=== PATIENT | female | born 1995 | race Caucasian/White ===

== ENCOUNTER → 2018-06-11 09:46 | Outpatient (CLI) | payer OTHER, SELFPAY ==
--- NOTE | 2018-06-11 09:49 | XR_ITS ---
XR foot wt bearing RT 3V HISTORY: Foot pain ITS.REASON: pain ORDERING PHYSICIAN: Augustina Kenyon DPM PATIENT AGE: 23 years COMPARISON: None FINDINGS: There is mild hallux valgus with mild hypertrophic changes at the distal aspect of the first metatarsal. Mild pes planus also noted. No fracture or dislocation or other significant anomaly. IMPRESSION: Mild hallux valgus and pes planus with bunion formation
--- NOTE | 2018-06-11 09:49 | XR_ITS ---
XR foot wt bearing LT 3V HISTORY: Foot pain ITS.REASON: pain ORDERING PHYSICIAN: Augustina Kenyon DPM PATIENT AGE: 23 years COMPARISON: A FINDINGS: There is mild hallux valgus with some hypertrophic changes distal aspect of the first metatarsal. Mild pass planus also noted. No fracture or dislocation. No lytic or blastic change. IMPRESSION: Mild hallux valgus and pes planus with bunion formation
== END ==
PROVIDERS: PCP Emergency Medicine; Visit Provider Podiatrist
DX: M21.611 Bunion of right foot (principal); M21.612 Bunion of left foot
CPT/HCPCS: 73630

== ENCOUNTER → 2019-04-28 12:20 | Outpatient (CLI) | payer OTHER, SELFPAY ==
[2019-04-28 12:46] LABS: Basophils # 0.1 K/mm3 (0-0.2); Basophils % 0.7 % (0.1-2.0); Eosinophils # 0.3 K/mm3 (0.0-0.4); Eosinophils % 3.2 % (0.1-12.0); Hematocrit 42.9 % (37.0-47.0); Hemoglobin 13.9 g/dL (12.2-16.2); Lymphocytes # 2.4 K/mm3 (0.7-4.5); Lymphocytes % 29.9 % (10-50); Mean Corpuscular HGB Conc 32.3 g/dL (31.8-35.4); Mean Corpuscular Hemoglobin 29.1 pg (27.0-31.2); Mean Corpuscular Volume 90.1 fl (81-99); Mean Platelet Volume 7.5 fl (7.4-10.4); Monocytes # 0.4 K/mm3 (0.1-1.0); Monocytes % 5.1 % (1.7-9.3); Platelet Count 358 K/mm3 (142-424); Red Blood Count 4.76 M/mm3 (4.20-5.40); Red Cell Distribution Width 12.6 % (11.5-17.5); White Blood Count 8.2 K/mm3 (4.8-10.8)
--- NOTE | 2019-04-28 12:46 | ECG_ITS ---
APPROVED REPORT Exam: Resting ECG HR:77 bpm ECG Measurements Heart Rate 77 AXES NE 138 P 58 QRSd 84 QRS 51 QT 360 T 20 QTc 407 <Conclusion> Normal sinus rhythm with sinus arrhythmia Incomplete RBBB Normal ECG Electronically signed by : Se Knox, 04/28/2019 18:26:24
[2019-04-28 12:54] LABS: Urine Pregnancy, HCG Qual. Negative (Negative)
--- NOTE | 2019-04-28 12:55 | XR_ITS ---
PROCEDURE: XR CHEST 2V CLINICAL HISTORY: TOBACCO USE Smoker, cough, COMPARISON: No exams were available for comparison FINDINGS: The cardiomediastinal silhouette and pulmonary vascularity are within normal limits. The lungs are clear without infiltrates, suspicious nodules, or pleural effusions. No acute bony abnormalities. IMPRESSION: No acute findings. Dictated by: Taco Keen MD 04/28/2019 14:57 Electronically signed by Taco Keen MD in [facility] 04/28/2019 14:57
[2019-04-28 13:45] LABS: Anion Gap 16.3 mEq/L (5-15); Blood Urea Nitrogen 10 mg/dL (7-18); Calcium 9.5 mg/dL (8.5-10.1); Carbon Dioxide 25 mmol/L (21.0-32.0); Chloride 106 mmol/L (98-107); Creatinine,Serum 0.75 mg/dL (0.55-1.02); Estimated Glomerular Filt Rate 96 ml/min (>60); GFR (African American) 116 ML/MIN (>60); Glucose 134 mg/dL (74-106); Potassium 4.3 mmoL/L (3.5-5.1); Sodium 143 mmol/L (136-145)
[2019-04-30 08:20] LABS: Vitamin D 25 Hydroxy 33.5 ng/mL (30.0-100.0)
== END ==
PROVIDERS: PCP Emergency Medicine; Visit Provider Podiatrist
DX: Z01.818 Encounter for other preprocedural examination (principal); M76.821 Posterior tibial tendinitis, right leg; M76.822 Posterior tibial tendinitis, left leg; Q66.89 Other specified congenital deformities of feet; M20.11 Hallux valgus (acquired), right foot; M20.12 Hallux valgus (acquired), left foot
CPT/HCPCS: 36415; 71046; 80048; 81025; 82652; 85025; 93005

== ENCOUNTER → 2019-07-27 22:43 | Outpatient (CLI) | payer OTHER, SELFPAY ==
[2019-07-27 23:00] VITALS: BMI 17.7
[2019-07-27 23:16] VITALS: BP 123/74; PULSE 85; RESP 19; TEMP 36.6; O2SAT 100
== END ==
PROVIDERS: PCP Emergency Medicine; Visit Provider Emergency Medicine
DX: S81.851A Open bite, right lower leg, initial encounter (principal); W54.0XXA Bitten by dog, initial encounter
CPT/HCPCS: G0463

== ENCOUNTER → 2020-06-14 12:15 | Outpatient (CLI) | payer OTHER, SELFPAY ==
[2020-06-14 13:07] LABS: Basophils % 0.5 % (0.1-2.0); Eosinophils # 0.4 K/mm3 (0.0-0.4); Eosinophils % 4.5 % (0.1-12.0); Hematocrit 42.7 % (37.0-47.0); Hemoglobin 14.1 g/dL (12.2-16.2); Lymphocytes # 1.7 K/mm3 (0.7-4.5); Lymphocytes % 20.5 % (10-50); Mean Corpuscular HGB Conc 33.1 g/dL (31.8-35.4); Mean Corpuscular Hemoglobin 29.8 pg (27.0-31.2); Mean Corpuscular Volume 89.8 fl (81-99); Mean Platelet Volume 7.5 fl (7.4-10.4); Monocytes # 0.6 K/mm3 (0.1-1.0); Monocytes % 6.6 % (1.7-9.3); Neutrophils # 5.8 K/mm3 (1.8-7.8); Platelet Count 386 K/mm3 (142-424); Red Blood Count 4.75 M/mm3 (4.20-5.40); Red Cell Distribution Width 12.7 % (11.5-17.5); White Blood Count 8.5 K/mm3 (4.8-10.8)
[2020-06-16 05:18] LABS: HIV Screen 4th Generation wRfx Non Reactive (Non Reactive)
[2020-06-16 08:48] LABS: Hepatitis B Surface Antigen Negative (Negative); Hepatitis C Antibody <0.1 s/co ratio (0.0-0.9)
[2020-06-16 11:53] LABS: Rubella Antibodies, IgG 1.74 index (Immune >0.99)
[2020-06-16 15:47] LABS: Rapid Plasma Reagin Ab Titer Non Reactive (NonRea<1:1)
== END ==
PROVIDERS: Visit Provider Nurse Practitioner Obstetrics & Gynecology
DX: Z34.90 Encounter for supervision of normal pregnancy, unspecified, unspecified trimester (principal)
CPT/HCPCS: 36415; 84702; 85025; 86592; 86703; 86762; 86850; 87340; 87380; G0432

== ENCOUNTER → 2020-06-17 15:22 | Outpatient (CLI) | payer OTHER, SELFPAY ==
[2020-06-17 15:24] LABS: Microscopic, Urine URINE MICROSCOPIC (MICROSCOPIC)
[2020-06-17 16:19] LABS: Appearance,Urine CLEAR (Clear); Bilirubin,Urine Negative (Negative); Blood, Urine Negative (Negative); Color,Urine YELLOW (Yellow); Glucose,Urine (UA) Negative (Negative); Ketones,Urine Negative (Negative); Leukocyte Esterase,Urine Negative (Negative); Nitrate,Urine Negative (Negative); PH,Urine 6.5 (5.0-8.5); Protein,Urine Negative (Negative); Specific Gravity, Urine 1.025 (1.005-1.030); Urobilinogen,Urine 0.2 EU/dl (0.2)
== END ==
PROVIDERS: Visit Provider Nurse Practitioner Obstetrics & Gynecology
DX: Z34.90 Encounter for supervision of normal pregnancy, unspecified, unspecified trimester (principal)
CPT/HCPCS: 81001

== ENCOUNTER → 2020-06-21 13:21 | Outpatient (CLI) | payer OTHER, SELFPAY ==
--- NOTE | 2020-06-21 13:21 | US_ITS ---
PROCEDURE: US OB >= 14 WEEKS FETUS CLINICAL INDICATION: US OB for DATES COMPARISON: No exams were available for comparison FINDINGS: An intrauterine gestational sac is present with a pole with a crown-rump length of 3.23cm correlating to gestational age of 10weeks 1day. heart tones are present with an FHR of 178bpm. Yolk sac is noted. IMPRESSION: Live IUP at 10 weeks 1 day Estimated due date by Ultrasound is 01/16/2021 Dictated by: Taco Keen MD 06/21/2020 16:07 Taco Keen MD in [facility] 06/21/2020 16:07
== END ==
PROVIDERS: PCP Physician Assistant; Visit Provider Nurse Practitioner Obstetrics & Gynecology
DX: O26.841 Uterine size-date discrepancy, first trimester (principal)
CPT/HCPCS: 76805

== ENCOUNTER → 2020-07-15 10:57 | Outpatient (CLI) | payer OTHER, SELFPAY | PROVIDERS: Visit Provider Nurse Practitioner Obstetrics & Gynecology | DX: Z36.0 Encounter for antenatal screening for chromosomal anomalies (principal) | CPT/HCPCS: 36415; 82106 ==

== ENCOUNTER → 2020-08-30 09:26 | Outpatient (CLI) | payer OTHER, SELFPAY ==
--- NOTE | 2020-08-30 10:06 | US_ITS ---
PROCEDURE: US OB >= 14 WEEKS FETUS CLINICAL INDICATION: ANATOMY SCAN Complete OB ultrasound COMPARISON: US US OB >= 14 WEEKS FETUS from 06/21/2020 FINDINGS: Single viable intrauterine gestation. Breech position. Placenta: Posteriorplacenta grade 1. There is average amount fluid. The cervix appears satisfactory. Closed and measuring 5 cm in in length transabdominal Complete survey performed and was unremarkable on the submitted images as in PACS. No discrete anomalies identified on survey imaging by technologist. Active fetus. Three-vessel cord with satisfactory umbilical cord insertion. 4- chamber heart noted. Questionable echogenic cardiac focus of uncertain clinical significance. Survey of brain & ventricles Unremarkable. Face and neck survey unremarkable. Diaphragm and chest views unremarkable. Abdomen: Both kidneys noted and unremarkable. Stomach noted and satisfactory. Spine: Survey of the spine satisfactory with no anomalies identified nor imaged. Both arms and legs noted. Amniotic Fluid: Adequate. Maternal adnexa: No significant findings. Measurements: Average ultrasound age 20weeks. Gestational Age 20weeks 1day Estimated due date by ultrasound age 0701/17/2021. Estimated weight 324g BPD = 20weeks 1day OFD = 20weeks 1day HC = 19weeks 2days AC = 20weeks 1day FL = 20weeks Growth Percentile= 35Percent% Heart Rate = 155bpm Cerebellum = 21weeks 1day Humerus = 20weeks 3days HC/AC is 1.12 CI is 0.8 FL/BPD is 0.69 FL/AC is 0.22. IMPRESSION: There is a single live fetus in breech presentation with an average ultrasound age of 20 weeks. All parameters correlate. No definite anomalies. There is a questionable cardiac echogenic focus. This is of questionable clinical significance. Please see above for detail Dictated by: Taco Keen MD 08/31/2020 09:46 Taco Keen MD in [facility] 08/31/2020 09:46
== END ==
PROVIDERS: PCP Physician Assistant; Visit Provider Nurse Practitioner Obstetrics & Gynecology
DX: O26.841 Uterine size-date discrepancy, first trimester (principal)
CPT/HCPCS: 76805

== ENCOUNTER → 2020-10-30 08:49 | Outpatient (CLI) | payer OTHER, SELFPAY ==
[2020-10-30 09:22] LABS: Glucose,Fasting 85 mg/dl (74-100)
[2020-10-30 11:12] LABS: Glucose 1 Hour 120 mg/dL (74-100)
== END ==
PROVIDERS: Visit Provider Nurse Practitioner Obstetrics & Gynecology
DX: Z34.90 Encounter for supervision of normal pregnancy, unspecified, unspecified trimester (principal)
CPT/HCPCS: 36415; 82951

== ENCOUNTER 2020-11-05 18:53 | Outpatient (CLI) | payer OTHER, SELFPAY ==
[2020-11-05 19:01] VITALS: BMI 24.5
[2020-11-05 19:12] LABS: Microscopic, Urine URINE MICROSCOPIC (MICROSCOPIC)
[2020-11-05 19:15] LABS: Appearance,Urine SL CLOUDY (Clear); Bilirubin,Urine Negative (Negative); Blood, Urine Negative (Negative); Color,Urine YELLOW (Yellow); Glucose,Urine (UA) Negative (Negative); Ketones,Urine 1+ (Negative); Leukocyte Esterase,Urine Negative (Negative); Nitrate,Urine Negative (Negative); PH,Urine 5.5 (5.0-8.5); Protein,Urine Negative (Negative); Specific Gravity, Urine <= 1.005 (1.005-1.030); Urobilinogen,Urine 0.2 EU/dl (0.2)
[2020-11-05 19:20] LABS: Bacteria,Urine 2+ /lpf; RBC,Urine Occasional #/hpf (0-3)
[2020-11-05 19:27] LABS: Amphetamine/Metha Screen,Urine Negative ng/ml (<1000)
[2020-11-05 19:28] LABS: Barbiturates Screen,Urine Negative ng/ml (<200)
[2020-11-05 19:29] LABS: Benzodiazepines Screen,Urine Negative ng/ml (<200); Cannabinoid Screen,Urine Negative ng/ml (<50)
[2020-11-05 19:30] LABS: Cocaine Screen,Urine Negative ng/ml (<300)
[2020-11-05 19:31] LABS: Methadone Screen,Urine Negative ng/ml (<300); Opiate Screen,Urine Negative ng/ml (<300)
[2020-11-05 19:32] LABS: Phencyclidine Screen,Urine Negative ng/ml (<25)
[2020-11-05 19:49] VITALS: BP 116/73; PULSE 71; RESP 18; TEMP 37.2; O2SAT 97; BMI 24.5
== END 2020-11-05 20:38 | disposition home or self-care (01) ==
LOC: OBOUT 18:55 → OB 18:56
PROVIDERS: Obstetrics & Gynecology; PCP Nurse Practitioner Obstetrics & Gynecology; Visit Provider Nurse Practitioner Obstetrics & Gynecology
DX: O26.893 Other specified pregnancy related conditions, third trimester (principal); Z3A.29 29 weeks gestation of pregnancy; R10.13 Epigastric pain
CPT/HCPCS: 59025; 80305; 81001; 87086; 87088; 87186; G0463

== ENCOUNTER → 2020-12-17 08:37 | Outpatient (CLI) | payer OTHER, SELFPAY ==
--- NOTE | 2020-12-17 08:37 | US_ITS ---
PROCEDURE: US OB FOLLOW UP CLINICAL INDICATION: sga Small for gestational age FINDINGS: The following parameters are obtained: Average ultrasound age is Average 35weeks 4days Estimated due date by ultrasound is 01/17/2021. Estimated weight is 2,673g. This is 41 percentile BPD: 36weeks 2days OFD: 36 weeks 2 days HC: 35weeks 5days AC: 35weeks 6days FL: 34weeks 2days heart rate: 140bpm bpm. HC/AC: 0.99 Cephalic index: 0.8 FL/BPD: 0.74 FL/AC: 0.21 Amniotic fluid index: 8.11cm The femur length is 34weeks 2days No obvious anomalies evident. Placenta: Posterior and fundal grade 2 Cervix: Closed and 3-4 cm in length Biophysical profile 8 of 8 IMPRESSION: There is a single live fetus present in cephalic presentation. Average ultrasound age 35 weeks 4 days with an estimated weight 2673 g which is 41 percentile. PAVEL is 8 cm Biophysical profile of 8 Dictated by: Taco Keen MD 12/17/2020 11:24 Taco Keen MD in [facility] 12/17/2020 11:24
== END ==
PROVIDERS: PCP Emergency Medicine; Visit Provider Nurse Practitioner Obstetrics & Gynecology
DX: O36.5990 Maternal care for other known or suspected poor fetal growth, unspecified trimester, not applicable or unspecified (principal)
CPT/HCPCS: 76816; 76819

== ENCOUNTER → 2020-12-24 14:03 | Outpatient (CLI) | payer OTHER, SELFPAY | PROVIDERS: Visit Provider Nurse Practitioner Obstetrics & Gynecology | DX: Z34.90 Encounter for supervision of normal pregnancy, unspecified, unspecified trimester (principal) | CPT/HCPCS: 86403 ==

== ENCOUNTER → 2021-01-11 09:52 | Outpatient (CLI) | payer OTHER, SELFPAY | PROVIDERS: Visit Provider Nurse Practitioner Obstetrics & Gynecology | DX: Z01.812 Encounter for preprocedural laboratory examination (principal); Z11.52 Encounter for screening for COVID-19; Z34.90 Encounter for supervision of normal pregnancy, unspecified, unspecified trimester | CPT/HCPCS: U0003 ==

== ENCOUNTER 2021-01-12 04:59 | Inpatient (IN) | payer OTHER, SELFPAY ==
[2021-01-12 05:02] VITALS: BMI 26.8
[2021-01-12 05:39] LABS: Microscopic, Urine URINE MICROSCOPIC (MICROSCOPIC)
[2021-01-12 05:40] VITALS: BP 129/77; PULSE 68; RESP 18; TEMP 37.1; O2SAT 97; BMI 26.8
[2021-01-12 05:45] LABS: Basophils % 0.3 % (0.1-2.0); Eosinophils # 0.3 K/mm3 (0.0-0.4); Eosinophils % 3.9 % (0.1-12.0); Hematocrit 34.8 % (37.0-47.0); Hemoglobin 11.7 g/dL (12.2-16.2); Lymphocytes # 2.2 K/mm3 (0.7-4.5); Mean Corpuscular HGB Conc 33.5 g/dL (31.8-35.4); Mean Corpuscular Hemoglobin 29.5 pg (27.0-31.2); Mean Corpuscular Volume 87.9 fl (81-99); Mean Platelet Volume 8.1 fl (7.4-10.4); Monocytes # 0.6 K/mm3 (0.1-1.0); Monocytes % 8.7 % (1.7-9.3); Neutrophils # 3.8 K/mm3 (1.8-7.8); Neutrophils % 55.1 % (37.0-80.0); Platelet Count 258 K/mm3 (142-424); Red Blood Count 3.97 M/mm3 (4.20-5.40); White Blood Count 6.9 K/mm3 (4.8-10.8)
[2021-01-12 06:14] LABS: Appearance,Urine CLEAR (Clear); Bilirubin,Urine Negative (Negative); Blood, Urine Negative (Negative); Color,Urine YELLOW (Yellow); Glucose,Urine (UA) Negative (Negative); Ketones,Urine Negative (Negative); Leukocyte Esterase,Urine Negative (Negative); Nitrate,Urine Negative (Negative); Protein,Urine Negative (Negative); Specific Gravity, Urine 1.025 (1.005-1.030)
[2021-01-12 07:02] LABS: Bacteria,Urine Trace /lpf; RBC,Urine Occasional #/hpf (0-3); WBC,Urine Occasional #/hpf (0-3)
--- NOTE | 2021-01-12 07:38 | HMH.PHAINT ---
MEDICATION RECONCILIATION COMPLETED ON PATIENT USING EXTERNAL FILL HISTORY FROM PHARMACY. -RUCHI VELOZ, RAMUD
[2021-01-12 09:21] LABS: Amphetamine/Metha Screen,Urine Negative ng/ml (<1000)
[2021-01-12 09:22] LABS: Barbiturates Screen,Urine Negative ng/ml (<200)
[2021-01-12 09:23] LABS: Benzodiazepines Screen,Urine Negative ng/ml (<200); Cannabinoid Screen,Urine Negative ng/ml (<50)
[2021-01-12 09:24] LABS: Cocaine Screen,Urine Negative ng/ml (<300)
[2021-01-12 09:25] LABS: Methadone Screen,Urine Negative ng/ml (<300); Opiate Screen,Urine Negative ng/ml (<300)
[2021-01-12 09:26] LABS: Phencyclidine Screen,Urine Negative ng/ml (<25)
--- NOTE | 2021-01-12 09:28 | HMH.LABNOT ---
Labor Note - Subjective: Date: 01/12/21 Time: 09:28 regular contraction - Objective: NST:: Reactive Contractions:: every 2-3 minutes Cervical Dilation:: 3 Effacement:: 75% Station: -2 Membranes: artificially ruptured Comment:: I ruptured her membranes and there was clear fluid. - Fetus: Monitoring?: Yes monitoring type:: External - Assessment: Labor progressing?: Yes Patient Problems: All Active Problems (Acute) Asthma (Chronic) Women's annual routine gynecological examination (Acute) - Plan: Anesthesia for epidural?: Yes Continue to labor down?: Yes Plan for ?: No Continue to monitor?: Yes Start pushing?: No Comment:: She is doing very well. I have ruptured her membranes and there was clear fluid. She is malgorzata every 2 minutes. Nonstress test is reactive. We will expect a vaginal delivery.
--- NOTE | 2021-01-12 09:32 | HMH.OBAPHP ---
OB - H&P: HPI Antepartum - History of Present Illness Chief complaint: Term History of present illness: She is a 25-year-old 1 para 0 at 39+ weeks gestational age. She is feeling pressure and discomfort and as result that we have elected to induce her labor at term. Her due date is January 16. - History of Present Criteria for establishing EDC:: LMP confirmed by 1st trimester US care: good care Ultrasounds: normal 1st trimester US, normal mid trimester US Obstetrical complications: none Medical complications: none - Labs Blood type: O (+) positive Rubella: immune RPR/VDRL: nonreactive GBS status: negative HBsAG: negative HMH History I have reviewed the patient's past medical history: Yes Medical History: Reports:: Anxiety, Asthma, Depression Denies:: Diabetes Mellitus Type 1 *Have you ever received a pneumonia vaccine?: No *Have you received a flu vaccine this season?: Yes Other Surgeries: Yes: No Previous Surgery, Other. No: Amputation: No Fractures: No - *Social History Smoking Status: Current some day smoker Tobacco Type: cigarettes # Packs/Day (cigarettes): 1 Alcohol Intake: never Alcohol Intake Frequency:: holidays/special occasions only Substance Use Type: denies use *Occupational Status:: employed Housing: house Household Members: significant other *Travel in the last 8 weeks: None - Psychiatric History Pschychiatric History:: Reports:: Anxiety, Depression Family Hx:: Cancer, Diabetes Para: 0 Review of Systems - Review of Systems Review of systems:: pertinent systems reviewed and negative unless documented below Meds Home Medications Medication Instructions Recorded Confirmed Type vitamin with calcium 1 tab PO DAILY tab 08/11/20 01/12/21 History no.72-iron 27 mg-folic acid 1 mg tablet Albuterol Sulfate [Albuterol 2 puffs IH Q4HP PRN 01/12/21 01/12/21 History Sulfate Hfa] Ferrous Sulfate 325 mg PO DAILY 01/12/21 01/12/21 History Fluticasone Propionate [Flovent 2 puff IH BID 01/12/21 01/12/21 History HFA] Allergies Allergy/AdvReac Type Severity Reaction Status Date / Time No Known Allergies Allergy Verified 01/07/21 09:51 OB - H&P: Exam - Physical Exam Vital signs: Temp Pulse Resp BP Pulse Ox 98.7 F 68 18 129/77 97 01/12/21 05:40 01/12/21 05:40 01/12/21 05:40 01/12/21 05:40 01/12/21 05:40 - Constitutional no acute distress - Routine HEENT Exam Head: Present: normocephalic Eye: Present: EOMI, PERRL ENT: Present: mucous membranes moist - Routine Neck Exam Present: supple, full ROM - Routine Respiratory Exam Absent: accessory muscle use (good air entry bilaterally), respiratory distress, wheezes, crackles - Routine Cardiovascular Exam Present: RRR. Absent: murmur - Routine Abdominal Exam Present: soft, normoactive bowel sounds. Absent: tenderness, distended, guarding - Routine Rectal Exam Patient deferred: visual exam, digital exam - Routine Exam Patient deferred: external exam, groin exam, perineal exam - Routine Extremities Exam Present: full ROM. Absent: cyanosis, edema - Routine Skin Exam Present: intact. Absent: cyanosis - Routine Neurological Exam Present: alert, oriented X3 - Routine Psychiatric Exam Present: normal affect OB - Results - Labs Labs: Short CBC 01/12/21 Range/Units 05:02 WBC 6.9 (4.8-10.8) K/mm3 Hgb 11.7 L (12.2-16.2) g/dL Hct 34.8 L (37.0-47.0) % Plt Count 258 (142-424) K/mm3 Urine 01/12/21 Range/Units 05:02 Urine Color Yellow (Yellow) Urine Appearance Clear (Clear) Urine pH 6.0 (5.0-8.5) Ur Specific [place] 1.025 (1.005-1.030) Urine Protein Negative (Negative) Urine Glucose (UA) Negative (Negative) OB - A/P Antepartum (1) Normal delivery Status: Acute - Additional Plan Planning to breastfeed?: Yes Plan: induction Additional Information::
--- NOTE | 2021-01-12 10:42 | P.PN_ITS ---
[facility] Anesthesia Checklist - Structural Data Admitted From: Inpatient Planned Operative Procedure/s: labor epidural Consent for Planned Operative Procedure(s) Verified: Yes - Airway Assessment C-Spine Mobility Assessed: Yes TMJ Mobility Assessed: Yes Dentition: Good Dentition - Neurological Assessment Level of Consciousness: Awake, Alert, Appropriate - Anesthesia Plan Anesthesia Risk discussed: Yes Anesthesia Plan: Verified ASA Class: II Anesthesia Type: Epidural [facility] History I have reviewed the patient's past medical history: Yes Medical History: Reports:: Anxiety, Asthma, Depression Denies:: Diabetes Mellitus Type 1 *Have you ever received a pneumonia vaccine?: No *Have you received a flu vaccine this season?: Yes Anesthesia experience/problems:: none Other Surgeries: Yes: No Previous Surgery, Other. No: Amputation: No Fractures: No - *Social History Smoking Status: Current some day smoker Tobacco Type: cigarettes # Packs/Day (cigarettes): 1 Alcohol Intake: never Alcohol Intake Frequency:: holidays/special occasions only Substance Use Type: denies use *Occupational Status:: employed Housing: house Household Members: significant other *Travel in the last 8 weeks: None - Psychiatric History Pschychiatric History:: Reports:: Anxiety, Depression Family Hx:: Cancer, Diabetes Para: 0
--- NOTE | 2021-01-12 11:44 | HMH.LABNOT ---
Labor Note - Subjective: Date: 01/12/21 Time: 11:44 regular contraction - Objective: NST:: Reactive Contractions:: every 2-3 minutes Cervical Dilation:: 4 Effacement:: 90% Station: 0 - Fetus: Monitoring?: Yes monitoring type:: External - Assessment: Labor progressing?: Yes Cephalopelvic disproportion?: No Patient Problems: All Active Problems Normal delivery (Acute) (Acute) Asthma (Chronic) Women's annual routine gynecological examination (Acute) - Plan: Anesthesia for epidural?: Yes Continue to labor down?: Yes Plan for ?: No Continue to monitor?: Yes Start pushing?: No
--- NOTE | 2021-01-12 14:21 | HMH.LABNOT ---
Labor Note - Subjective: Date: 01/12/21 Time: 13:45 regular contraction - Objective: NST:: Reactive Contractions:: every 2-3 minutes Cervical Dilation:: 6 Effacement:: 100% Station: 0 Membranes: artificially ruptured - Fetus: Monitoring?: Yes monitoring type:: External - Assessment: Labor progressing?: Yes Cephalopelvic disproportion?: No Patient Problems: All Active Problems Normal delivery (Acute) (Acute) Asthma (Chronic) Women's annual routine gynecological examination (Acute) - Plan: Anesthesia for epidural?: Yes Continue to labor down?: Yes Plan for ?: No Continue to monitor?: Yes Start pushing?: No
--- NOTE | 2021-01-12 16:48 | HMH.DN ---
- Delivery Note Delivery Date:: 01/12/21 Delivery Time:: 16:31 Anesthesia Type: Epidural Was labor medically induced?: Yes Induction method: per pitocin protocol Gestational age (weeks): 39 Infant delivered prior to 39 weeks?: No Infant Gender: Female at 1 minute: 8 at 5 minutes: 9 LAC or MLE?: LAC Delivery Procedure:: She is a 25-year-old 1 now para 0 at 39+ weeks gestational age. She was feeling pressure and discomfort. As result that we elected to induce her labor at term. She was started on IV oxytocin had her membranes ruptured. Under labor epidural she progressed to full dilation and delivered spontaneously a liveborn female child at 4:31 PM in the afternoon of January 12, 2021. On deliver the head the anterior shoulder then easily delivered followed by the rest the 's body atraumatically. The baby was vigorous and the oropharynx and nasopharynx were bulb suction. We allowed the cord to continue to pulsate for approximately 1 minute. The cord was then doubly clamped and cut and the was placed on the mother's abdomen for further care. The nurses assigned Apgars of 8 at 1 minute and 9 at 5 minutes. She received IV oxytocin and using gentle traction on the cord and countertraction on the fundus I was able to easily deliver the placenta intact at 4:35 PM. It had a normal three-vessel cord. She had a small first-degree laceration that was repaired with interrupted 3-0 Vicryl Rapide suture. She had bilateral labial tears that were reapproximated with interrupted 3-0 Vicryl Rapide suture. She has O+ blood, she is rubella immune and was group B streptococcus negative. She plans to breast-feed. Her metal bench patternmaker is Dr. Doan. Estimated blood loss was approximately 200 cc. Laceration:: vaginal, labial Placental Delivery Description: Spontaneous
[2021-01-12 16:53] LABS: Cord Blood PH 7.38 (7.35-7.45)
--- NOTE | 2021-01-12 23:05 | PC.NURSE ---
OR team paged
--- NOTE | 2021-01-12 23:07 | HMH.ACPN2 ---
Internal Medicine - PN: Subj *Date: 01/12/21 *Time: 23:07 Interval history: She has had more than usual bleeding this evening and I examined her and was able to retrieve clots from the uterus. There was also a couple small pieces of placenta. I suspect she has retained placenta and we will need to take her back to the operating room for a D&C. Exam Vital signs and Labs for Last 24 Hours: Temp Pulse Resp BP Pulse Ox 98.7 F 68 18 129/77 97 01/12/21 05:40 01/12/21 05:40 01/12/21 05:40 01/12/21 05:40 01/12/21 05:40 Laboratory Results - last 24 hr 01/12/21 05:02: WBC 6.9, RBC 3.97 L, Hgb 11.7 L, Hct 34.8 L, MCV 87.9, MCH 29.5, MCHC 33.5, RDW 14.0, Plt Count 258, MPV 8.1, Neut % (Auto) 55.1, Lymph % (Auto) 32.0, [place] % (Auto) 8.7, Eos % (Auto) 3.9, Baso % (Auto) 0.3, Neut # (Auto) 3.8, Lymph # (Auto) 2.2, [place] # (Auto) 0.6, Eos # (Auto) 0.3, Baso # (Auto) 0.0 01/12/21 05:02: Urine Color Yellow, Urine Appearance Clear, Urine pH 6.0, Ur Specific [place] 1.025, Urine Protein Negative, Urine Glucose (UA) Negative, Urine Ketones Negative, Urine Blood Negative, Urine Nitrate Negative, Urine Bilirubin Negative, Urine Urobilinogen 1.0, Ur Leukocyte Esterase Negative, Urine RBC Occasional, Urine WBC Occasional, Ur Squamous Epith Cells 10-20, Urine Bacteria Trace 01/12/21 05:02: Urine Opiates Screen Negative, Urine Methadone Screen Negative, Ur Barbituates Screen Negative, Ur Phencyclidine Scrn Negative, Ur Amphetamines Screen Negative, U Benzodiazepines Scrn Negative, Urine Cocaine Screen Negative, U Marijuana (THC) Screen Negative 01/12/21 05:02: Blood Type O Positive, Antibody Screen Negative, Crossmatch (AHG) See Detail 01/12/21 16:40: Cord ABG pH 7.38 I & O for Last 24 hours: Intake & Output 01/10/21 01/11/21 01/12/21 01/13/21 11:59 11:59 11:59 11:59 Weight 166 lb - Constitutional no acute distress Assessment and Plan (1) Normal delivery Status: Acute Category: Medical Code(s): O80 - Encounter for full-term uncomplicated delivery (2) Retained products of conception after delivery with complications Status: Acute Category: Medical Code(s): O73.1 - Retained portions of placenta and membranes, without hemorrhage - Assessment and plan all Dx Assessment and Plan for all problems:: We will go ahead with a D&C this evening for retained products. We will do this in the operating room. We discussed the risk of surgery that includes bleeding infection.
--- NOTE | 2021-01-12 23:10 | PC.NURSE ---
spoke with Renee Simon
[2021-01-13] VITALS (9 sets, daily range): BP systolic 111–145; BP diastolic 51–75; PULSE 56–71; RESP 12–20; TEMP 36.6–36.9; O2SAT 94–100
--- NOTE | 2021-01-13 00:22 | HMH.OPNOTE ---
Date of procedure: 01/13/21 Pre-op Diagnosis:: hemorrhage, retained products Post-op Diagnosis:: hemorrhage Procedure performed:: D&C Surgeon:: Rashaun Cárdenas MD STRETCHING MACHINE OPERATOR:: Prateek Vaughn Anesthesia: LMA Estimated blood loss (mL): 700 Clinical Note:: She is a 25-year-old 1 now para 1 who is about 6 hours post delivery. She was having increased vaginal bleeding and I examined her in labor and delivery and she had passed considerable amount of large clots. I think that the uterus was full of clots and she was not malgorzata down however when I did examine her I thought I could feel some retained placenta and I did retrieve a couple of small pieces of placenta. As result of this I elected to take her for a D&C. I had performed an ultrasound and did not see a lot of retained products I thought there might be some close to the cervix. Operative findings:: She had a bulky uterus. The endometrial contents were completely empty. I retrieved a small 2 cm piece of tissue that appeared to be placental-like. Otherwise there was no evidence of any retained products. Operative note:: She was taken the operating room where LMA anesthesia was found be adequate. She is prepped draped normal sterile fashion lithotomy position. Weighted speculum placed in vagina and the anterior lip of the cervix was grasped with a sponge forcep. I then examined the endometrial cavity with my fingers. I then performed a gentle curettage with a large curette. I retrieved a couple of small pieces of tissue that looked placenta like although it was not entirely clear that this is what it was. There were no large pieces of placenta. I then performed a gentle curettage with a 11 mm curved Todd suction curette and once again did not retrieve any significant amount of tissue. I then elected to place a Bakri balloon within the uterine cavity and I inserted a backup balloon with approximately 120 cc of saline. I then attached this to a David bag. There was minimal drainage from the David bag. Her perineal laceration had come open slightly so I elected to place interrupted 3-0 Vicryl Rapide sutures here. She tolerated procedure well and was taken to the recovery room in excellent condition. All sponge and instrument counts were correct. Recommended blood loss was approximately 700 cc. I correct volume will be done post surgery after measuring the sponges and canisters. Condition: stable Disposition: PACU Specimens:: None Complications:: None
--- NOTE | 2021-01-13 00:36 | HMH.ANESI ---
[facility] Anesthesia Record Part I Intake, IV Amount: 1,000 Estimated blood loss (mL): 800 Urine output (mL): 0 Blood Pressure: 111/57 SaO2: 96 Pulse Rate: 62 Respiratory Rate: 12 Temperature: 97.8 F Patient is:: Awake, Stable Stable to PACU at:: 00:30
--- NOTE | 2021-01-13 01:26 | SUR.OPER ---
Patient had 800ml blood loss in OR. Dr. Cárdenas is aware. Patient has H&H scheduled for 6am and Dr. Cárdenas is okay with waiting to draw H&H at this time. Vital signs are stable. RN reported OR blood loss to Shruthi Singh OB RN as well.
[2021-01-13 06:56] LABS: Hematocrit 30.6 % (37.0-47.0); Hemoglobin 10.4 g/dL (12.2-16.2)
--- NOTE | 2021-01-13 08:25 | HMH.ACPN2 ---
Internal Medicine - PN: Subj *Date: 01/13/21 *Time: 08:25 Interval history: She is doing very well this morning. She is 1 day post vaginal delivery. We had to take her back at midnight for a D&C. We did not retrieve much tissue. Her hemoglobin this morning is 10.4. Her lochia is normal. She is eating and drinking and ambulating. The Bakri balloon fell out on its own. She is bottlefeeding. Exam Vital signs and Labs for Last 24 Hours: Temp Pulse Resp BP Pulse Ox 98.4 F 60 16 137/73 97 01/13/21 01:24 01/13/21 01:24 01/13/21 01:24 01/13/21 01:24 01/13/21 01:24 Laboratory Results - last 24 hr 01/12/21 05:02: Urine Opiates Screen Negative, Urine Methadone Screen Negative, Ur Barbituates Screen Negative, Ur Phencyclidine Scrn Negative, Ur Amphetamines Screen Negative, U Benzodiazepines Scrn Negative, Urine Cocaine Screen Negative, U Marijuana (THC) Screen Negative 01/12/21 05:02: Blood Type O Positive, Antibody Screen Negative, Crossmatch (AHG) See Detail 01/12/21 16:40: Cord ABG pH 7.38 01/13/21 06:17: Hgb 10.4 L, Hct 30.6 L I & O for Last 24 hours: Intake & Output 01/10/21 01/11/21 01/12/21 01/13/21 11:59 11:59 11:59 11:59 Intake Total 1000 / 1000 Balance 1000 / 1000 Weight 166 lb - Constitutional no acute distress - *Routine HEENT Exam Head: Present: normocephalic Eye: Present: EOMI, PERRL ENT: Present: mucous membranes moist Assessment and Plan (1) Normal delivery Status: Acute Category: Medical Code(s): O80 - Encounter for full-term uncomplicated delivery (2) Retained products of conception after delivery with complications Status: Acute Category: Medical Code(s): O73.1 - Retained portions of placenta and membranes, without hemorrhage - Assessment and plan all Dx Assessment and Plan for all problems:: She is doing very well this morning. We will plan to send her home tomorrow. Her hemoglobin is stable.
--- NOTE | 2021-01-13 09:33 | HMH.ANESII ---
[facility] Anesthesia Record Part II Discharge Time: 01:00 Destination: floor PACU nurse assessment reviewed?: Yes Patient Condition:: Good Anesthesia Complications:: None Swallowing reflex intact?: Yes Cyanosis?: No Blood Pressure: 131/75 Pulse Rate: 58 Temperature: 98.5 F Mental Status: Alert & Oriented Pain level:: 7 Nausea and/or vomitting:: None Intake, IV Amount: 1,000
--- NOTE | 2021-01-13 11:51 | SW/DCPLANNER ---
I received a referral regarding: THC use during . Patient was positive for THC on: 06/17/20 (first visit) and on 10/28/20 (due to stress). Patient and were negative at delivery. female (Anna Lopez) was born on [birth year]. Infants father (Lazaro Lopez 11/29/92) was present at time of my visit. Patient stated that herself, Lazaro and Anna will reside at [address] [place] [address] in [place]. Patients contact number is [phone]. Patient is currently established with [facility] and is not interested in HANDS at this time but is aware how to reach them if needed. Patient is currently employed with [employer]. Patient stated that she currently has: crib, carseat, clothing, diapers and formula. Nursing staff (Sherie) stated that patient is appropriate with infant. Patient and infant are expected to discharge home tomorrow 01/14/21. I will follow up with patient if there are any other needs/new orders.
[2021-01-14 08:00] VITALS: BP 143/72; PULSE 71; RESP 18; TEMP 37; O2SAT 100
--- NOTE | 2021-01-14 08:22 | HMH.OBDCSM ---
General - General Admission date:: 01/12/21 Discharge date: 01/14/21 HPI - History of Present Illness History of present illness: She is a 25-year-old 1 now para 1 who was 39 weeks gestational age. She was having pressure and discomfort and as result of that we elected to bring her in for induction at term. Hospital Course Hospital Course: She was started on IV oxytocin had her membranes ruptured. Under labor epidural she progressed to full dilation and delivered spontaneously a liveborn female child at 4:31 PM in the afternoon of January 12, 2021. The baby weighed 7 pounds 6 ounces and was 19 inches long. She had Apgars of 8 at 1 minute and 9 at 5 minutes. He had heavier bleeding than normal and on examination of the endometrial cavity I felt that she may have had some retained products. I did an ultrasound and really did not see much but elected to take her for a D&C in the operating room. At that time we did not recover much tissue. She has done well and has remained afebrile throughout her hospitalization. She is eating and drinking and ambulating. She is bottlefeeding. Her lochia is normal. She has O Rh+ blood, she is rubella immune and was group B streptococcus negative. She will be discharged home to follow-up with me in approximately 2 weeks time. She will continue with her vitamins and iron. She was given the usual instructions with respect to limiting her activity, driving and sexual activity. She will receive Depo-Provera prior to discharge. Her condition on discharge is stable and improved. Rhogam Administration: Not Indicated Objective Vital signs: Temp Pulse Resp BP Pulse Ox 98.0 F 71 20 128/69 100 01/13/21 16:00 01/13/21 16:00 01/13/21 16:00 01/13/21 16:00 01/13/21 16:00 no acute distress - *Routine HEENT Exam Head: Present: normocephalic Eye: Present: EOMI, PERRL ENT: Present: mucous membranes moist - *Routine Neck Exam Present: supple - *Routine Respiratory Exam Present: CTA bilaterally - *Routine Cardiovascular Exam Present: RRR - *Routine Abdominal Exam Present: soft, normoactive bowel sounds. Absent: tenderness - *Routine Extremities Exam Absent: cyanosis, clubbing, edema - *Routine Skin Exam Present: warm. Absent: rash - Detailed Eye Exam Eyelids: Bilateral normal inspection DS: Diagnosis - Discharge Diagnosis (1) Normal delivery Status: Acute (2) Retained products of conception after delivery with complications Status: Acute Discharge Plan - Patient Discharge Instructions ACTIVITY: No heavy lifting DIET: continue same diet Additional Instructions: NO STRENUOUS ACTIVITY, NO HEAVY LIFTING AND NOTHING IN THE VAGINA FOR 6 WEEKS Patient Instructions: Depression, Hemorrhage, DI for Labor and Delivery, Vaginal , DI for Pre-eclampsia, Preventing the Spread of Coronavirus Discharge Instructions - Follow up Plan Follow up with: Rashaun Cárdenas MD [Staff Physician] - Disposition: Home, Self-Care Condition at discharge:: Stable Home Medications: Home Medications Medication Instructions Recorded Confirmed Type vitamin with calcium 1 tab PO DAILY tab 08/11/20 01/12/21 History no.72-iron 27 mg-folic acid 1 mg tablet Albuterol Sulfate [Albuterol 2 puffs IH Q4HP PRN 01/12/21 01/12/21 History Sulfate Hfa] Ferrous Sulfate 325 mg PO DAILY 01/12/21 01/12/21 History Fluticasone Propionate [Flovent 2 puff IH BID 01/12/21 01/12/21 History HFA] Prescriptions/Medication Reconciliation: Continued vitamin with calcium no.72-iron 27 mg-folic acid 1 mg tablet 1 tab PO DAILY tab Albuterol Sulfate [Albuterol Sulfate Hfa] 2 puffs IH Q4HP PRN PRN Reason: Shortness Of Breath Ferrous Sulfate 325 mg PO DAILY Fluticasone Propionate [Flovent HFA] 2 puff IH BID - Problem Reconciliation Problems Reviewed?: Yes
== END 2021-01-14 11:15 | disposition home or self-care (01) | DRG 768 ==
PROVIDERS: Admitting Provider Nurse Practitioner Obstetrics & Gynecology; PCP Physician Assistant; Visit Provider Nurse Practitioner Obstetrics & Gynecology
DX: O70.0 First degree perineal laceration during delivery (principal); Z37.0 Single live birth; O72.2 Delayed and secondary postpartum hemorrhage; Z3A.39 39 weeks gestation of pregnancy
CPT/HCPCS: 59409; 59160; 59025; 80305; 81001; 82800; 85014; 85018; 85025; 86850; 94761; G0283; J1050; J2405; U0003

== ENCOUNTER → 2022-03-14 16:14 | Outpatient (CLI) | payer OTHER, SELFPAY ==
--- NOTE | 2022-03-14 16:18 | XR_ITS ---
PROCEDURE INFORMATION: Exam: XR Left Ankle Exam date and time: 03/14/2022 4:20 PM Age: 27 years old Clinical indication: Patient HX: Left ankle pain, no injury. TECHNIQUE: Imaging protocol: Radiologic exam of the Left ankle. Views: 3 or more views. COMPARISON: CR [id number] XR foot wt bearing LT 3V 06/11/2018 9:52 AM FINDINGS: Bones/joints: Normal. Soft tissues: Normal. IMPRESSION: No acute findings.
--- NOTE | 2022-03-14 16:18 | XR_ITS ---
PROCEDURE INFORMATION: Exam: XR Left Foot Complete; Alignment Exam date and time: 03/14/2022 4:20 PM Age: 27 years old Clinical indication: Patient HX: Left foot pain, no injury. ; Additional info: Ankle pain TECHNIQUE: Imaging protocol: Radiologic exam of the Left foot. Views: 3 or more views. COMPARISON: CR [id number] XR foot wt bearing LT 3V 06/11/2018 9:52 AM FINDINGS: Bones/joints: Mild hallux valgus deformity. Mild pes planus deformity. Soft tissues: Normal. IMPRESSION: 1. Mild hallux valgus deformity. Findings stable. 2. Mild pes planus deformity.
--- NOTE | 2022-03-14 16:18 | XR_ITS ---
PROCEDURE INFORMATION: Exam: XR Right Foot Complete; Alignment Exam date and time: 03/14/2022 4:20 PM Age: 27 years old Clinical indication: Patient HX: Right foot pain, no injury. ; Additional info: Ankle pain TECHNIQUE: Imaging protocol: Radiologic exam of the Right foot. Views: 3 or more views. COMPARISON: CR [id number] XR foot wt bearing RT 3V 06/11/2018 9:52 AM FINDINGS: Bones/joints: Mild hallux valgus deformity. Findings stable. Mild pes planus deformity. Findings stable. Soft tissues: Normal. IMPRESSION: 1. Mild hallux valgus deformity. Findings stable. 2. Mild pes planus deformity. Findings stable.
--- NOTE | 2022-03-14 16:18 | XR_ITS ---
PROCEDURE INFORMATION: Exam: XR Right Ankle Exam date and time: 03/14/2022 4:20 PM Age: 27 years old Clinical indication: Patient HX: Right ankle pain, no injury. TECHNIQUE: Imaging protocol: Radiologic exam of the Right ankle. Views: 3 or more views. COMPARISON: CR [id number] XR foot wt bearing RT 3V 06/11/2018 9:52 AM FINDINGS: Bones/joints: Normal. Soft tissues: Normal. IMPRESSION: No acute findings.
== END ==
PROVIDERS: PCP Physician Assistant; Visit Provider Orthopaedic Surgery
DX: M25.572 Pain in left ankle and joints of left foot (principal); M25.571 Pain in right ankle and joints of right foot
CPT/HCPCS: 73610; 73630

== ENCOUNTER → 2022-03-28 16:43 | Outpatient (CLI) | payer OTHER, SELFPAY ==
--- NOTE | 2022-03-28 16:43 | MR_ITS ---
PROCEDURE INFORMATION: Exam: MR Left Lower Extremity Joint Without Contrast; Ankle Exam date and time: 03/28/2022 5:19 PM Age: 27 years old Clinical indication: Pain; Ankle; Left; Additional info: Left ankle pain. Flat footed. Bunion. Medial sided foot pain swelling in foot. No injury / trauma TECHNIQUE: Imaging protocol: Magnetic resonance imaging of the Left lower extremity without contrast. Exam focused on the ankle. COMPARISON: CR XR ANKLE LT MIN 3V 03/14/2022 4:20 PM FINDINGS: Bones and cartilage: No visualized acute marrow edema, acute fracture, or dislocation of the ankle. Benign vascular remnants are identified within the calcaneus. Joint spaces: Small effusion posterior to the tibiotalar joint. Minimal subtalar joint effusion posteriorly. LIGAMENTS: Distal tibiofibular syndesmosis: No visualized tear. Anterior talofibular ligament: No visualized tear. Posterior talofibular ligament: No visualized tear. Calcaneofibular ligament: No visualized tear. Deltoid ligament complex: No visualized tear. TENDONS: Flexor tendons of foot: Unremarkable as visualized. Tibialis posterior tendon: See below. Peroneal tendons: Minimal tenosynovitis of the posterior tibialis tendon and peroneal tendons. Extensor tendons of foot: Unremarkable as visualized. Tibialis anterior tendon: Unremarkable as visualized. Achilles tendon: Unremarkable as visualized. Tarsal canal (Sinus tarsi): No significant sinus tarsi edema. Muscles: No visualized acute abnormality. Soft tissues: A 5-6 mm cystic collection of fluid is identified medial to the talonavicular joint, consistent with a synovial or ganglion cyst. Plantar fascia: Intact, as visualized. IMPRESSION: 1. Small effusion posterior to the tibiotalar joint. Minimal subtalar joint effusion posteriorly. 2. Minimal tenosynovitis of the posterior tibialis tendon and peroneal tendons. 3. Additional findings described above.
== END ==
PROVIDERS: PCP Physician Assistant; Visit Provider Orthopaedic Surgery
DX: M21.42 Flat foot [pes planus] (acquired), left foot (principal)
CPT/HCPCS: 73721